=== PATIENT | male | born 1950 | race Caucasian/White ===

== ENCOUNTER 2018-12-16 13:53 | Emergency (ER) | payer MEDICARE ==
--- NOTE | 2018-12-16 14:26 | EDM.PDOC ---
ED HPI GENERAL MEDICAL PROBLEM - General Chief Complaint: General Stated Complaint: TROUBLE BREATHING, SWOLLEN ANKLES Time Seen by Provider: 12/16/18 14:24 Source of Information: Reports: Patient History Limitations: Reports: No Limitations - History of Present Illness INITIAL COMMENTS - FREE TEXT/NARRATIVE: This gentleman has no cardiac history. He says he has had the crud for a couple of months. His ankles have been swelling the last several days. This seems to have started after an [address] that he completed a few days ago.. However the ankle swelling has not gone down over the past 2 days. He complains of some shortness of breath for the past couple of months. He is able to sleep flat but then he wakes up short of breath and has to sit up. After a while he feels better and can go back to sleep. He has never had any lung problems in the past and no heart disease. He never had any chest pain or palpitations - Related Data Allergies Allergy/AdvReac Type Severity Reaction Status Date / Time No Known Allergies Allergy Verified 12/16/18 14:11 Home Meds: Home Meds NK [No Known Home Meds] 12/16/18 [History] Past Medical History Gastrointestinal History: Reports: None Psychiatric History: Reports: Addiction, Bipolar - Past Surgical History Head Surgeries/Procedures: Reports: None GI Surgical History: Reports: Hernia, Inguinal Dermatological Surgical History: Reports: None Social & Family History - Family History Family Medical History: Noncontributory - Tobacco Use Smoking Status *Q: Current Every Day Smoker Years of Tobacco use: 50 Packs/Tins Daily: 1.5 Second Hand Smoke Exposure: No - Caffeine Use Caffeine Use: Reports: Coffee, Tea - Recreational Drug Use Recreational Drug Use: No ED ROS GENERAL - Review of Systems Review Of Systems: See Below Constitutional: Reports: No Symptoms HEENT: Reports: No Symptoms Respiratory: Reports: Shortness of Breath. Denies: Pleuritic Chest Pain, Cough , Sputum Cardiovascular: Reports: Dyspnea on Exertion, PND Endocrine: Reports: No Symptoms GI/Abdominal: Reports: No Symptoms : Reports: No Symptoms Skin: Reports: No Symptoms Neurological: Reports: No Symptoms Psychiatric: Reports: No Symptoms ED EXAM, GENERAL - Physical Exam Exam: See Below Exam Limited By: No Limitations General Appearance: Alert, WD/WN, No Apparent Distress Eye Exam: Bilateral Eye: Normal Inspection Throat/Mouth: Normal Oropharynx Head: Atraumatic Neck: Normal Inspection Respiratory/Chest: Crackles (Bibasilar) Cardiovascular: Normal Peripheral Pulses, Regular Rate, Rhythm, No Murmur GI/Abdominal: Soft, Non-Tender Back Exam: Normal Inspection Extremities: Pedal Edema (2+ bilaterally) Neurological: Alert, Oriented Psychiatric: Normal Affect Skin Exam: Warm, Dry Course - Vital Signs Last Recorded V/S: Last Vital Signs Temp 35.5 C 12/16/18 14:23 Pulse 101 H 12/16/18 14:23 Resp 22 H 12/16/18 14:23 BP 152/88 H 12/16/18 14:23 Pulse Ox 90 L 12/16/18 14:23 - Orders/Labs/Meds Orders: Active Orders 24 hr Category Date Time Status EKG 12 Lead [EK] Urgent Ther 12/16/18 14:35 Ordered Labs: Laboratory Tests 12/16/18 12/16/18 12/16/18 Range/Units 14:36 14:49 14:49 WBC 8.0 (4.5-11.0) K/uL RBC 4.17 L (4.30-5.90) M/uL Hgb 13.0 (12.0-15.0) g/dL Hct 41.0 (40.0-54.0) % MCV 98 (80-98) fL MCH 31 (27-31) pg MCHC 32 (32-36) % Plt Count 399 (150-400) K/uL Neut % (Auto) 72 H (36-66) % Lymph % (Auto) 15 L (24-44) % [place] % (Auto) 10 H (2-6) % Eos % (Auto) 2 (2-4) % Baso % (Auto) 1 (0-1) % Sodium 138 L (140-148) mmol/L Potassium 3.9 (3.6-5.2) mmol/L Chloride 101 (100-108) mmol/L Carbon Dioxide 30 (21-32) mmol/L Anion Gap 10.9 (5.0-14.0) mmol/L BUN 22 H (7-18) mg/dL Creatinine 1.0 (0.8-1.3) mg/dL Est Cr Clr Drug Dosing 75.30 mL/min Estimated GFR (MDRD) > 60 (>60) Glucose 122 H (74-106) mg/dL Calcium 8.8 (8.5-10.1) mg/dL Total Bilirubin 0.3 (0.2-1.0) mg/dL AST 32 (15-37) U/L ALT 48 (12-78) U/L Alkaline Phosphatase 129 H (46-116) U/L Troponin I 0.027 (0.000-0.056) ng/mL NT-Pro-B Natriuret Pep 7072 H (5-125) pg/mL Total Protein 6.5 (6.4-8.2) g/dL Albumin 2.7 L (3.4-5.0) g/dL Globulin 3.8 H (2.3-3.5) g/dL Albumin/Globulin Ratio 0.7 L (1.2-2.2) Urine Color Urine Appearance Urine pH (4.5-8.0) Ur Specific [place] (1.008-1.030) Urine Protein (NEGATIVE) mg/dL Urine Glucose (UA) (NEGATIVE) mg/dL Urine Ketones (NEGATIVE) mg/dL Urine Occult Blood (NEGATIVE) Urine Nitrite (NEGAITVE) Urine Bilirubin (NEGATIVE) Urine Urobilinogen (NORMAL) mg/dL Ur Leukocyte Esterase (NEGATIVE) Urine RBC (0-5) Urine WBC (0-5) Ur Epithelial Cells Amorphous Sediment Urine Bacteria Urine Mucus 12/16/18 Range/Units 14:51 WBC (4.5-11.0) K/uL RBC (4.30-5.90) M/uL Hgb (12.0-15.0) g/dL Hct (40.0-54.0) % MCV (80-98) fL MCH (27-31) pg MCHC (32-36) % Plt Count (150-400) K/uL Neut % (Auto) (36-66) % Lymph % (Auto) (24-44) % [place] % (Auto) (2-6) % Eos % (Auto) (2-4) % Baso % (Auto) (0-1) % Sodium (140-148) mmol/L Potassium (3.6-5.2) mmol/L Chloride (100-108) mmol/L Carbon Dioxide (21-32) mmol/L Anion Gap (5.0-14.0) mmol/L BUN (7-18) mg/dL Creatinine (0.8-1.3) mg/dL Est Cr Clr Drug Dosing mL/min Estimated GFR (MDRD) (>60) Glucose (74-106) mg/dL Calcium (8.5-10.1) mg/dL Total Bilirubin (0.2-1.0) mg/dL AST (15-37) U/L ALT (12-78) U/L Alkaline Phosphatase (46-116) U/L Troponin I (0.000-0.056) ng/mL NT-Pro-B Natriuret Pep (5-125) pg/mL Total Protein (6.4-8.2) g/dL Albumin (3.4-5.0) g/dL Globulin (2.3-3.5) g/dL Albumin/Globulin Ratio (1.2-2.2) Urine Color Yellow Urine Appearance Clear Urine pH 5.0 (4.5-8.0) Ur Specific [place] 1.020 (1.008-1.030) Urine Protein Trace (NEGATIVE) mg/dL Urine Glucose (UA) Normal (NEGATIVE) mg/dL Urine Ketones Negative (NEGATIVE) mg/dL Urine Occult Blood Trace (NEGATIVE) Urine Nitrite Negative (NEGAITVE) Urine Bilirubin Negative (NEGATIVE) Urine Urobilinogen Normal (NORMAL) mg/dL Ur Leukocyte Esterase Negative (NEGATIVE) Urine RBC Not seen (0-5) Urine WBC Not seen (0-5) Ur Epithelial Cells Not seen Amorphous Sediment Few Urine Bacteria Not seen Urine Mucus Not seen - Radiology Interpretation Free Text/Narrative:: Chest x-ray appears to show cephalization and a small amount of pulmonary interstitial edema and small left pleural effusion. Radiology report is pending - Re-Assessments/Exams Free Text/Narrative Re-Assessment/Exam: 12/16/18 16:26 EKG shows sinus tachycardia at 101 bpm unifocal PVCs inverted T waves in V4 [address] changes. Noted O2 sats approximately 90%. Troponin is negative but a BNP is greater than 7000 I spoke with in [place] and he advises inpatient treatment. I spoke with Dr. Gill the hospitalist. Patient will be transferred to that facility. He is stable asymptomatic and his son will take him by private vehicle. He received Lasix 40 mg orally Departure - Departure Time of Disposition: 16:30 Disposition: DC/Tfer to Acute Hospital 02 Condition: Fair Clinical Impression: CHF, Congestive heart failure - Discharge Information Referrals: PCP,None [Primary Care Provider] - Forms: ED Department Discharge - My Orders Last 24 Hours: My Active Orders 12/16/18 14:35 EKG 12 Lead [EK] Urgent - Assessment/Plan Last 24 Hours: My Active Orders 12/16/18 14:35 EKG 12 Lead [EK] Urgent
--- NOTE | 2018-12-16 15:39 | CRLCR ---
INDICATION: Shortness of breath. COMPARISON: None. FINDINGS/IMPRESSION: Pulmonary hyperexpansion consistent with chronic obstructive pulmonary disease. Mild patchy infiltrate in the mid and lower left lung predominantly involving the lingula, and small left pleural effusion, possibly representing pneumonia. Normal heart size. No acute osseous findings. Dictated by Tyrese Casper MD @ 12/16/2018 3:37:58 PM Dictated by: Tyrese Casper MD @ 12/16/2018 15:38:51 (Electronically Signed)
[2018-12-16] MEDS ORDERED: Furosemide 40 MG Tab PO ONE (16:31)
== END 2018-12-16 17:00 ==
LOC: JP.ED 13:53
DX: I50.9 Heart failure, unspecified (principal); F17.210 Nicotine dependence, cigarettes, uncomplicated
CPT/HCPCS: 36415; 71046; 80053; 81001; 83880; 84484; 85025; 93005; 99285; A9270; 93010